=== PATIENT | male | born 1970 | race Caucasian/White ===

== ENCOUNTER 2020-04-09 13:46 | Emergency (ER) | payer MEDICAID, OTHER ==
[~2020-04-09] VITALS: Ht 167.6 cm; Wt 100.0 kg
[~2020-04-09 13:46] MED LIST: GABA-529; GABA600T
[2020-04-09 13:51] VITALS: BP 132/92
[2020-04-09] MEDS ORDERED: IBUPROFEN 600MG TABLET PO ONE (14:45)
== END 2020-04-09 16:44 | disposition home or self-care (01) ==
LOC: ER 13:46
DX: M25.512 Pain in left shoulder (principal); M25.521 Pain in right elbow; F16.10 Hallucinogen abuse, uncomplicated; F11.10 Opioid abuse, uncomplicated; Z79.899 Other long term (current) drug therapy; Z87.891 Personal history of nicotine dependence; W18.39XA Other fall on same level, initial encounter; Y93.89 Activity, other specified; Y92.89 Other specified places as the place of occurrence of the external cause; Y99.8 Other external cause status
CPT/HCPCS: 73030; 73080; 99284

== ENCOUNTER 2020-07-05 14:01 | Emergency (ER) | payer MEDICAID ==
[~2020-07-05] VITALS: Ht 188 cm; Wt 99.0 kg
[2020-07-05 14:11] VITALS: BP 133/77
== END 2020-07-05 14:57 | disposition left against medical advice (07) ==
LOC: ER 14:01
DX: M25.512 Pain in left shoulder (principal); F10.229 Alcohol dependence with intoxication, unspecified; Y90.0 Blood alcohol level of less than 20 mg/100 ml; F41.9 Anxiety disorder, unspecified; F16.10 Hallucinogen abuse, uncomplicated
CPT/HCPCS: 93005; 99283